=== PATIENT | male | born 1960 | race African-American/Black ===

== ENCOUNTER 2017-03-09 19:47 | Emergency (ER) | payer OTHER ==
[2017-03-09 19:58] VITALS: BP 128/76; PULSE 77; TEMP 97.9; BMI 25.0
--- NOTE | 2017-03-09 20:54 | PDOC ---
History of Present Illness - General Chief Complaint: Chest Pain Stated Complaint: CHEST PAINS Time Seen by Provider: 03/09/17 20:47 History Source: Patient Exam Limitations: No Limitations - History of Present Illness Initial Comments: 03/09/17 20:53 Patient is an otherwise healthy 56 year old male presenting with chest pain for 5 hours pain started at rest 5-6/10 constant, achy, worse on breathing 03/09/17 21:05 Past History - Past Medical History Allergies/Adverse Reactions: Allergies Allergy/AdvReac Type Severity Reaction Status Date / Time No Known Allergies Allergy Verified 03/09/17 19:58 Home Medications: Ambulatory Orders Tamsulosin HCl [Flomax] 0.4 mg PO DAILY 03/09/17 - Psycho/Social/Smoking Cessation Hx Suicidal Ideation: No Smoking History: Never smoked Have you smoked in the past 12 months: No Information on smoking cessation initiated: No Hx Alcohol Use: No Drug/Substance Use Hx: No *Physical Exam - Vital Signs Last Vital Signs Temp Pulse Resp BP Pulse Ox 97.9 F 77 18 128/76 97 03/09/17 19:52 03/09/17 19:52 03/09/17 19:52 03/09/17 19:52 03/09/17 19:52 ED Treatment Course - LABORATORY CBC & Chemistry Diagram: 03/09/17 21:15 03/09/17 21:15 Medical Decision Making - Medical Decision Making 03/09/17 20:53 56 year old male with 5 hours of chest pain and shortness of breath. 03/09/17 21:04 Patient refuses ASA. 03/09/17 21:42 CBC WBC 3.8 K/mm3 (4.0-10.0) L 03/09/17 21:15 RBC 5.08 M/mm3 (4.00-5.60) 03/09/17 21:15 Hgb 15.1 GM/dL (11.7-16.9) 03/09/17 21:15 Hct 44.6 % (35.4-49) 03/09/17 21:15 MCV 87.9 fl (80-96) 03/09/17 21:15 MCH 29.7 pg (25.7-33.7) 03/09/17 21:15 MCHC 33.8 g/dl (32.0-35.9) 03/09/17 21:15 RDW 13.9 % (11.9-15.9) 03/09/17 21:15 Plt Count 187 K/MM3 (134-434) 03/09/17 21:15 MPV 9.1 fl (7.5-11.1) 03/09/17 21:15 Neutrophils % 43.3 % (42.8-82.8) 03/09/17 21:15 Lymphocytes % 45.4 % (8-40) H 03/09/17 21:15 Monocytes % 10.1 % (3.8-10.2) 03/09/17 21:15 Eosinophils % 0.8 % (0-4.5) 03/09/17 21:15 Basophils % 0.4 % (0-2.0) 03/09/17 21:15 non concerning 03/09/17 22:30 CMP Sodium 139 mmol/L (136-145) 03/09/17 21:15 Potassium 4.0 mmol/L (3.5-5.1) 03/09/17 21:15 Chloride 104 mmol/L (98-107) 03/09/17 21:15 Carbon Dioxide 28 mmol/L (21-32) 03/09/17 21:15 Anion Gap 7 (8-16) L 03/09/17 21:15 BUN 18 mg/dL (7-18) 03/09/17 21:15 Creatinine 1.2 mg/dL (0.7-1.3) 03/09/17 21:15 Creat Clearance w eGFR > 60 (>60) 03/09/17 21:15 Random Glucose 120 mg/dL (74-106) H 03/09/17 21:15 Calcium 8.7 mg/dL (8.5-10.1) 03/09/17 21:15 Magnesium 2.1 mg/dL (1.8-2.4) 03/09/17 21:15 Total Bilirubin 0.6 mg/dL (0.2-1.0) 03/09/17 21:15 AST 28 U/L (15-37) 03/09/17 21:15 ALT 29 U/L (12-78) 03/09/17 21:15 Alkaline Phosphatase 66 U/L (45-117) 03/09/17 21:15 Creatine Kinase 229 IU/L (39-308) 03/09/17 21:15 Creatine Kinase Index 0.5 % (0.0-5.0) 03/09/17 21:15 CK-MB (CK-2) 1.341 ng/mL (0.5-3.6) 03/09/17 21:15 Troponin I < 0.02 ng/ml (0.00-0.05) 03/09/17 21:15 Total Protein 7.2 g/dl (6.4-8.2) 03/09/17 21:15 Albumin 3.6 g/dl (3.4-5.0) 03/09/17 21:15 Within normal limits Cardiac enzymes reduce suspision for ACS INR mildly elevated 1.16 03/09/17 22:40 CXR shows no infiltrates, non concerning for PNA *DC/Admit/Observation/Transfer Diagnosis at time of Disposition: Acute costochondritis - Discharge Dispostion Disposition: HOME Condition at time of disposition: Stable Admit: No - Referrals Referrals: Chio Turner MD [Staff Physician] - Mike Key MD [Staff Physician] - Alejo Milan MD [Staff Physician] - - Patient Instructions Printed Discharge Instructions: DI for Chest Pain Additional Instructions: Thank you for trusting us with your health care. I hope you were satisfied with the care we provided. As we discussed, the tests we performed today did not show any concerning cause of your chest pain or shortness of breath. We don 't always find the cause of a problem in the emergency department. Our main goal is to identify serious and immediately concerning conditions. You should follow up with a primary physician who can perform a more in-depth evaluation of your problems. I have provided a referral for Dr. Turner since you do not currently have a primary physician. You call his office and make an appointment or call your insurance to find another doctor. I have also provided a referral to a dispatch specialist (Dr. Key) and a client service associate (Dr. Milan) if you want to see them directly. - Attestations Physician Attestion: 03/09/17 22:50 I, Dr. Sae Rader, attest that this document has been prepared under my direction and personally reviewed by me in its entirety. I further attest, that it accurately reflects all work, treatment, procedures and medical decision -making performed by me.
[2017-03-09 21:19] LABS: BASOPHIL 0.4 % (0-2.0); EOSINOPHIL 0.8 % (0-4.5); MCH 29.7 pg (25.7-33.7); MCHC 33.8 g/dl (32.0-35.9); MEAN CELL VOLUME 87.9 fl (80-96); MEAN PLT VOLUME 9.1 fl (7.5-11.1); NEUTROPHILS 43.3 % (42.8-82.8); PLATELET COUNT 187 K/MM3 (134-434); RDW 13.9 % (11.9-15.9); WHITE BLOOD COUNT 3.8 K/mm3 (4.0-10.0)
[2017-03-09] MEDS ORDERED: ASPIRIN 81 MG CHEWABLE TABLETS PO ONE (21:19)
[2017-03-09] MEDS ORDERED: ASPIRIN 81 MG CHEWABLE TABLETS ONE (21:26)
--- NOTE | 2017-03-09 21:38 | PDOC ---
Attending Attestation - HPI HPI: 03/09/17 21:45 The patient is a 56 year old male with no significant past medical history who presents to the ED with complaints of chest pain since earlier today. Patient reports an onset of a constant achy chest pain 5 hours prior to his arrival to the ED. He states his chest pain is a 6/10 in sensation and is worsened on deep expiration. Patient states he has chronic shortness of breath at baseline but his shortness of breath is now worsened secondary to present symptoms. Patient denies similar symptoms in the past but states he gets a different type of chest pain secondary to working out. Patient also reports a non productive slight cough for several weeks. Denies fevers or chills. Denies palpitations. Denies nausea, vomiting, or diarrhea. Denies any other symptoms. Social hx: The patient is very physically active and regularly works out in the gym. Denies a smoking or alcohol history. CONSTITUTIONAL: Absent: fever, no chills, no fatigue EYES: Absent: visual changes ENT: Absent: ear pain, no sore throat CARDIOVASCULAR: + chest pain Absent:, no palpitations RESPIRATORY:+ SOB, cough GI: Absent: abdominal pain, no nausea, no vomiting, no constipation, no diarrhea GENITOURINARY: Absent: dysuria, no frequency, no hematuria MUSKULOSKELETAL: Absent: back pain, no arthralgia, no myalgia SKIN: Absent: rash NEURO: Absent: headache <Warren,Andrys - Last Filed: 03/09/17 21:45> - Resident Resident Name: Sae Rader - ED Attending Attestation I have performed the following: I have examined & evaluated the patient, The case was reviewed & discussed with the resident, I agree w/resident's findings & plan, Exceptions are as noted - Physicial Exam PE: 03/09/17 21:42 *Physical Exam General Appearance: Yes: Appropriately Dressed. No: Apparent Distress, Intoxicated HEENT: positive: EOMI, RAUL, Normal ENT Inspection, Normal Voice, TMs Normal, Pharynx Normal. negative: Pale Conjunctivae, Photophobia, Scleral Icterus (R), Scleral Icterus (L) Neck: positive: Trachea midline, Normal Thyroid, Supple. negative: Tender, Rigid, Carotid bruit, Stridor, Lymphadenopathy (R), Lymphadenopathy (L), Thyromegaly Respiratory/Chest: positive: Lungs Clear, Normal Breath Sounds. negative: Chest Tender, Respiratory Distress, Accessory Muscle Use, Labored Respiration, RES, Crackles, Rales, Rhonchi, Stridor, Wheezing, Dullness Cardiovascular: positive: Regular Rhythm, Regular Rate, S1, S2. negative: Edema , JVD, Murmur, Bradycardia, Tachycardia Vascular Pulses: Dorsalis-Pedis (R): 2+, Doralis-Pedis (L): 2+ Gastrointestinal/Abdominal: positive: Normal Bowel Sounds, Flat, Soft. negative : Tender, Organomegaly, Pulsatile Mass, Increased Bowel Sounds, Decreased BS, Distended, Guarding, Rebound, Hernia, Hepatomegaly, Spleenomegaly Lymphatic: negative: Adenopathy, Tenderness Musculoskeletal: positive: Normal Inspection. negative: CVA Tenderness, Decreased Range of Motion Extremity: positive: Normal Capillary Refill, Normal Inspection, Normal Range of Motion, Pelvis Stable. negative: Tender, Pedal Edema, Swelling, Erythema Integumentary: positive: Normal Color, Dry, Warm. negative: Cyanotic, Erythema , Jaundice, Rash Neurologic: positive: solar installer pv II-XII NML intact, Fully Oriented, Alert, Normal Mood/ Affect, Motor Strength 5/5. negative: EOM Palsy, Facial Droop, Sensory Deficit - Medical Decision Making 03/10/17 19:29 labs and chest xray all negative. Pt is hemodynamically stable. Pt was discharged to f/u with medicine and cardiology. <Alejandro Brooks - Last Filed: 03/10/17 19:30>
[2017-03-09 21:46] LABS: INR 1.16 (0.82-1.09); PROTHROMBIN TIME (PATIENT) 12.8 SEC (9.98-11.88)
[2017-03-09 21:48] LABS: ALBUMIN 3.6 g/dl (3.4-5.0); ANION GAP 7 (8-16); CALCIUM 8.7 mg/dL (8.5-10.1); CO2 28 mmol/L (21-32); CREATININE 1.2 mg/dL (0.7-1.3); GLUCOSE,RANDOM 120 mg/dL (74-106); SGPT/ALT 29 U/L (12-78); TOT PROT 7.2 g/dl (6.4-8.2)
[2017-03-09 21:54] LABS: ALK PHOS 66 U/L (45-117); BILIRUBIN,TOTAL 0.6 mg/dL (0.2-1.0); CPK 229 IU/L (39-308); TROPONIN I < 0.02 ng/ml (0.00-0.05)
[2017-03-09 21:56] LABS: MAGNESIUM 2.1 mg/dL (1.8-2.4); SGOT/AST 28 U/L (15-37)
--- NOTE | 2017-03-10 14:54 | EKG ---
Test Reason : Blood Pressure : / mmHG Vent. Rate : 068 BPM Atrial Rate : 068 BPM P-R Int : 184 ms QRS Dur : 100 ms QT Int : 380 ms P-R-T Axes : 068 -36 035 degrees QTc Int : 404 ms NORMAL SINUS RHYTHM POSSIBLE LEFT ATRIAL ENLARGEMENT LEFT AXIS DEVIATION ABNORMAL ECG WHEN COMPARED WITH ECG OF 21-JUL-2005 14:07, QRS AXIS SHIFTED LEFT Confirmed by KENIA KENDRICK MD ([id number]) on 03/10/2017 2:54:02 PM Referred By: Confirmed By:KENIA KENDRICK MD
== END 2017-03-09 23:10 | disposition home or self-care (01) ==
LOC: JER 19:47
DX: M94.0 Chondrocostal junction syndrome [Tietze] (principal)
CPT/HCPCS: 36415; 71020-TC; 80053; 82553; 83735; 84484; 85025; 85610; 93005; 93010; 99283-25

== ENCOUNTER 2019-07-04 01:20 | Emergency (ER) | payer OTHER ==
[2019-07-04 01:42] VITALS: BP 135/77; PULSE 60; TEMP 98.3; BMI 24.5
--- NOTE | 2019-07-04 02:19 | PDOC ---
Attending Attestation - Resident Resident Name: Tyrone Aly - ED Attending Attestation I have performed the following: I have examined & evaluated the patient, The case was reviewed & discussed with the resident, I agree w/resident's findings & plan - HPI HPI: 07/04/19 02:18 see resident hpi - Physicial Exam PE: 07/04/19 02:18 agree with resident exam - Medical Decision Making 07/04/19 02:18 58-year-old male with 1 year of intermittent chest pain Stress test on and fall of this year was within normal limits Patient has no symptoms at this time EKG is unchanged Plan for chest x-ray and labs with DC and recommended outpatient follow-up pending results
[2019-07-04 02:39] LABS: BASO % 0.5 % (0-2.0); EOS % 1.2 % (0-4.5); HEMATOCRIT 44.6 % (35.4-49); MCH 29.5 pg (25.7-33.7); MCHC 33.6 g/dl (32.0-35.9); MEAN CELL VOLUME 87.8 fl (80-96); MEAN PLT VOLUME 9.6 fl (7.5-11.1); MONO % 9.5 % (3.8-10.2); NEUT % 40.8 % (42.8-82.8); PLATELET COUNT 145 K/MM3 (134-434); RBC 5.07 M/mm3 (4.00-5.60); RDW 13.6 % (11.9-15.9); WHITE BLOOD COUNT 3.5 K/mm3 (4.0-10.0)
[2019-07-04 02:41] LABS: INR 0.98 (0.83-1.09); PROTHROMBIN TIME (PATIENT) 11.6 SEC (9.7-13.0)
[2019-07-04 02:44] LABS: ACTIVATED PTT 34.4 SECONDS (25.2-36.5)
[2019-07-04 02:55] LABS: ALBUMIN 3.7 g/dl (3.4-5.0); ALK PHOS 61 U/L (45-117); ANION GAP 6 MMOL/L (8-16); BILIRUBIN,TOTAL 0.5 mg/dL (0.2-1); BLOOD UREA NITROGEN 20.6 mg/dL (7-18); CALCIUM 8.5 mg/dL (8.5-10.1); CHLORIDE 108 mmol/L (98-107); CO2 28 mmol/L (21-32); CREATININE 1.1 mg/dL (0.55-1.3); GLUCOSE,RANDOM 95 mg/dL (74-106); POTASSIUM 4.1 mmol/L (3.5-5.1); SGOT/AST 27 U/L (15-37); SGPT/ALT 34 U/L (13-61); SODIUM 142 mmol/L (136-145); TOT PROT 7.3 g/dl (6.4-8.2)
--- NOTE | 2019-07-04 03:05 | PDOC ---
History of Present Illness - General Chief Complaint: Shortness of Breath Stated Complaint: SOB History Source: Patient Exam Limitations: No Limitations - History of Present Illness Initial Comments: 07/04/19 03:09 58 yo male no sig pmh presents to the ED with 1 year of intermittent CP and SOB. Pt states there is no changes in his stated symptoms today from any other day however, his stated his HR was below 60BPM after counting and decided to come to the ED. Pt denies current symptoms, states he feels well at normal state of health, denies F/C/N/V, abdominal pain, back pain, changes in bowel or bladder habits, calf tenderness, recent travel. Last stress test this past fall WNL Past History - Past Medical History Allergies/Adverse Reactions: Allergies Allergy/AdvReac Type Severity Reaction Status Date / Time No Known Allergies Allergy Verified 07/04/19 01:31 Home Medications: Ambulatory Orders Tamsulosin HCl [Flomax] 0.4 mg PO DAILY 03/09/17 COPD: No Disorders: Yes (BPH, Kidney Stones) - Psycho Social/Smoking Cessation Hx Smoking History: Never smoked Have you smoked in the past 12 months: No Hx Alcohol Use: No Drug/Substance Use Hx: No Review of Systems - Review of Systems Constitutional: Yes: See HPI HEENTM: Yes: See HPI Respiratory: Yes: See HPI Cardiac (ROS): Yes: See HPI ABD/GI: Yes: See HPI : Yes: See HPI Musculoskeletal: Yes: See HPI Integumentary: Yes: See HPI Neurological: Yes: See HPI *Physical Exam - Vital Signs Last Vital Signs Temp Pulse Resp BP Pulse Ox 98.3 F 60 18 135/77 100 07/04/19 01:30 07/04/19 01:30 07/04/19 01:30 07/04/19 01:30 07/04/19 02:51 - Physical Exam General Appearance: Yes: Nourished, Appropriately Dressed. No: Apparent Distress HEENT: positive: EOMI Neck: positive: Supple. negative: Carotid bruit Respiratory/Chest: positive: Lungs Clear, Normal Breath Sounds. negative: Respiratory Distress, Crackles, Rales, Rhonchi, Stridor, Wheezing Cardiovascular: positive: Regular Rhythm, Regular Rate, S1, S2. negative: Edema , JVD, Murmur Vascular Pulses: Dorsalis-Pedis (R): 4+, Doralis-Pedis (L): 4+ Gastrointestinal/Abdominal: positive: Flat, Soft. negative: Pulsatile Mass, Protuberent, Distended, Guarding, Rebound, Tenderness Musculoskeletal: negative: CVA Tenderness Integumentary: positive: Normal Color, Dry, Warm Neurologic: positive: Fully Oriented, Alert, Normal Mood/Affect, Normal Response ED Treatment Course - LABORATORY CBC & Chemistry Diagram: 07/04/19 02:17 07/04/19 02:17 - ADDITIONAL ORDERS Additional order review: Laboratory Results 07/04/19 07/04/19 07/04/19 02:17 02:17 02:17 PT with INR INR PTT (Actin FS) Sodium 142 Potassium 4.1 Chloride 108 H Carbon Dioxide 28 Anion Gap 6 L BUN 20.6 H Creatinine 1.1 Est GFR (CKD-EPI)AfAm 84.12 Est GFR (CKD-EPI)NonAf 72.58 Random Glucose 95 Calcium 8.5 Magnesium 2.1 Total Bilirubin 0.5 AST 27 ALT 34 Alkaline Phosphatase 61 Creatine Kinase 145 Troponin I < 0.02 B-Natriuretic Peptide 14.0 Total Protein 7.3 Albumin 3.7 07/04/19 02:17 PT with INR 11.60 INR 0.98 PTT (Actin FS) 34.4 Sodium Potassium Chloride Carbon Dioxide Anion Gap BUN Creatinine Est GFR (CKD-EPI)AfAm Est GFR (CKD-EPI)NonAf Random Glucose Calcium Magnesium Total Bilirubin AST ALT Alkaline Phosphatase Creatine Kinase Troponin I B-Natriuretic Peptide Total Protein Albumin 07/04/19 02:17 RBC 5.07 MCV 87.8 MCHC 33.6 RDW 13.6 MPV 9.6 Neutrophils % 40.8 L D Lymphocytes % 48.0 H D Monocytes % 9.5 Eosinophils % 1.2 D Basophils % 0.5 - RADIOLOGY Radiology Studies Ordered: Category Date Time Status CHEST PA & LAT [RAD] Stat Radiology 07/04/19 01:56 Ordered Medical Decision Making - Medical Decision Making 07/04/19 02:59 58 yo male no sig pmh presents to the ED with 1 year of intermittent CP and SOB. Pt states there is no changes in his stated symptoms today from any other day however, his stated his HR was below 60BPM after counting and decided to come to the ED. Pt denies current symptoms, states he feels well at normal state of health, denies F/C/N/V, abdominal pain, back pain, changes in bowel or bladder habits, calf tenderness, recent travel. Last stress test this past fall WNL Vitals WNL Pt is stable, has no symptoms Labs WNL, trops neg EKG no change from prior. Last Echo normal, pt has Slip Tender Pt safe for DC home with strict return precautions cell number [phone] Discharge - Discharge Information Problems reviewed: Yes Clinical Impression/Diagnosis: Shortness of breath Condition: Stable Disposition: HOME - Admission No - Follow up/Referral Referrals: Federico Poole MD [Primary Care Provider] - Pj Villagomez MD [Staff Physician] - - Patient Discharge Instructions Patient Printed Discharge Instructions: DI for Atypical Chest Pain, DI for Shortness of Breath Additional Instructions: You will receive a call regarding your labs. See your primary Doctor within the next 48 hours. Continue taking your home dosed medications as prescribed. Return to the ER for new or concerning symptoms including but not limited to: chest pain, difficulty breathing. Thank you - Post Discharge Activity
--- NOTE | 2019-07-04 10:11 | EKG ---
Test Reason : Blood Pressure : / mmHG Vent. Rate : 054 BPM Atrial Rate : 054 BPM P-R Int : 196 ms QRS Dur : 098 ms QT Int : 390 ms P-R-T Axes : 062 -25 014 degrees QTc Int : 369 ms SINUS BRADYCARDIA OTHERWISE NORMAL ECG WHEN COMPARED WITH ECG OF 09-MAR-2017 20:06, NO SIGNIFICANT CHANGE WAS FOUND Confirmed by ZULEMA JOHNSON MD ([id number]) on 07/04/2019 10:11:05 AM Referred By: Confirmed By:ZULEMA JOHNSON MD
== END 2019-07-04 03:14 | disposition home or self-care (01) ==
LOC: JER 01:20
DX: R06.02 Shortness of breath (principal); N40.0 Benign prostatic hyperplasia without lower urinary tract symptoms; N20.0 Calculus of kidney
CPT/HCPCS: 36415; 71046-TC-FY; 80053; 82550; 83735; 83880; 84484; 85025; 85610; 85730; 93005; 93010; 99283-25

== ENCOUNTER 2021-09-09 20:43 | Emergency (ER) | payer OTHER ==
[2021-09-09 20:54] VITALS: BP 115/74; PULSE 64; TEMP 97.9; BMI 23.5
[2021-09-09] MEDS ORDERED: ACETAMINOPHEN 1000 MG/100 ML BAG IVPB ONE (21:32)
[2021-09-09] MEDS ORDERED: ACETAMINOPHEN INJECTION 100 ML IVPB ONE (21:37)
[2021-09-09 22:01] LABS: BASO % 0.5 % (0-2.0); EOS % 0.6 % (0-4.5); HEMATOCRIT 47.9 % (35.4-49); HEMOGLOBIN 16.2 GM/dL (11.7-16.9); LYMPH % 40.1 % (8-40); MCH 29.9 pg (25.7-33.7); MCHC 33.7 g/dl (32.0-35.9); MEAN CELL VOLUME 88.7 fl (80-96); MEAN PLT VOLUME 8.8 fl (7.5-11.1); MONO % 10.9 % (3.8-10.2); NEUT % 47.9 % (42.8-82.8); PLATELET COUNT 160 10^3/uL (134-434); RDW 15.7 % (11.9-15.9); WHITE BLOOD COUNT 3.5 K/mm3 (4.0-10.0)
[2021-09-09 22:21] LABS: ALBUMIN 3.8 g/dl (3.4-5.0); BLOOD UREA NITROGEN 11.9 mg/dL (7-18); CALCIUM 9.2 mg/dL (8.5-10.1)
[2021-09-09 22:24] LABS: CREATININE 1.2 mg/dL (0.55-1.3)
[2021-09-09 22:26] LABS: BILIRUBIN,TOTAL 0.9 mg/dL (0.2-1); TOT PROT 7.4 g/dl (6.4-8.2)
[2021-09-09] MEDS ORDERED: ASPIRIN 81 MG CHEWABLE TABLETS PO ONE (23:01)
[2021-09-09] MEDS ORDERED: ASPIRIN 81 MG CHEWABLE TABLETS ONE (23:22)
== END 2021-09-10 00:52 | disposition left against medical advice (07) ==
LOC: JER 20:43
PROC: 3E0333Z Introduction of Anti-inflammatory into Peripheral Vein, Percutaneous Approach (ICD-10-PCS; principal; 2021-09-09)
DX: R07.9 Chest pain, unspecified (principal)
CPT/HCPCS: 36415; 71046-TC-FY; 80053; 84484; 85025; 93005; 93010; 99284-25

== ENCOUNTER 2022-04-24 00:51 | Emergency (ER) | payer OTHER ==
[2022-04-24 01:18] VITALS: BP 125/75; PULSE 81; RESP 20; BMI 23.5
[2022-04-24] MEDS ORDERED: LIDOCAINE HCL 2% JELLY (5 ML/TUBE) ONE (02:19)
== END 2022-04-24 03:44 | disposition home or self-care (01) ==
LOC: JER 00:51
DX: R31.9 Hematuria, unspecified (principal); T83.091A Other mechanical complication of indwelling urethral catheter, initial encounter
CPT/HCPCS: 99283-25

== ENCOUNTER 2022-04-30 23:16 | Emergency (ER) | payer OTHER ==
[2022-04-30 23:21] VITALS: BP 118/74; PULSE 71; RESP 18; BMI 23.5
== END 2022-04-30 23:58 | disposition left against medical advice (07) ==
LOC: JER 23:16
DX: R31.9 Hematuria, unspecified (principal)
CPT/HCPCS: 99281-25

== ENCOUNTER 2022-05-01 00:12 | Emergency (ER) | payer OTHER ==
[2022-05-01 00:37] VITALS: BP 131/81; PULSE 75; RESP 18; BMI 23.4
== END 2022-05-01 00:49 | disposition home or self-care (01) ==
LOC: FER 00:12
DX: R31.9 Hematuria, unspecified (principal)
CPT/HCPCS: 99281-25